=== PATIENT | male | born 1945 | race Caucasian/White ===

== ENCOUNTER 2020-02-01 14:37 | Emergency (ER) | payer MEDICARE, OTHER ==
[2020-02-01 14:45] VITALS: BP 155/95
--- NOTE | 2020-02-01 15:14 | ED Physician Documentation ---
History of Present Illness - Stated complaint Stated Complaint: LT LEG PX - Chief complaint Chief Complaint: Ext Problem - History obtained from History obtained from: Patient (74-year-old gentleman had remote we think laminectomy about 15 years ago. About 2 months ago he was moving his boat by himself and developed sharp low back pain radiating towards the left hip and into the leg. He denies numbness. No saddle anesthesia or fevers. The pain was controlled with Motrin but he did not want to keep taking it. He has an appointment with a new primary care physician in a couple of weeks but wonders if an MRI needs to be done sooner.) Review of Systems Constitutional: denies: Fever, Chills Nose: denies: Rhinorrhea / runny nose, Congestion Throat: denies: Sore throat Cardiac: denies: Chest pain / pressure, Palpitations Respiratory: denies: Dyspnea, Cough PD PAST MEDICAL HISTORY - Present Medications Home Medications: Ambulatory Orders Medication Instructions Recorded Confirmed predniSONE [Deltasone] 20 mg PO [id number] #21 tab 02/01/20 - Allergies Allergies/Adverse Reactions: Allergies Allergy/AdvReac Type Severity Reaction Status Date / Time codeine Allergy Nausea Verified 02/01/20 14:40 - Social History Does the pt smoke?: No Smoking Status: Never smoker - POLST Patient has POLST: No PD ED PE NORMAL - Vitals Vital signs reviewed: Yes - General General: Alert and oriented X 3, No acute distress - Back Back: No spinal TTP, Other (Diminished reflexes in both patella and both ankles, but intact sensation and strength throughout the lower extremities) - Neuro Neuro: Alert and oriented X 3, Normal speech Results - Vitals Vitals: Vital Signs - 24 hr 02/01/20 14:41 Temperature 36.9 C Heart Rate 87 Respiratory 16 Rate Blood Pressure 155/95 H O2 Saturation 97 Oxygen O2 Source Room air PD MEDICAL DECISION MAKING - ED course ED course: 74-year-old gentleman presents with radicular pain, there are no red flags. I discussed with him that an MRI does not need to be done emergently/today but probably does need to be done in the near future. We discussed options, I offered to write an outpatient order but with the understanding that he may have to be rader pay if it is prior to preauthorization Being done, we settled on I would email his new physician with whom he will be seeing for the first time in a couple of weeks to discuss the situation and see if the preauthorization process can be started before the patient is seen. Departure - Departure Disposition: 01 Home, Self Care Clinical Impression: Lumbar radiculopathy Condition: Good Record reviewed to determine appropriate education?: Yes Instructions: ED Sciatica Prescriptions: predniSONE [Deltasone] 20 mg PO [id number] #21 tab Comments: As discussed, you have signs and symptoms of a lumbar radiculopathy. You will eventually need an MRI, and I wrote the following email to Dr. Barba who we will be seeing soon. Return anytime if worse. Dear Dr. Barba, I am seeing a patient who will soon be yours as well by the name of René Alegre, date of 1945. He has a history of remote lumbar surgery and 2 months ago was moving his boat and developed low back pain and a left-sided lumbar radiculopathy which has been constant since. You are seeing him in early February. It may help speed things up for this gentleman if the authorization process for MRI is begun before you see him; would need to be L-Spine w/wo contrast. Feel free to email me with any questions. Discharge Date/Time: 02/01/20 15:15
== END 2020-02-01 15:15 | disposition home or self-care (01) ==
LOC: ED 14:37
DX: M54.16 Radiculopathy, lumbar region (principal)
CPT/HCPCS: 99282; 99283

== ENCOUNTER 2020-02-18 15:01 | Outpatient (CLI) | payer MEDICARE, OTHER ==
--- NOTE | 2020-02-18 17:01 | XRAY Report ---
Reason: LUMBAR RADICULOPATHY Procedure Date: 02/18/2020 Accession Number: [id number] / [id number] Procedure: WCP - Lumbar Spine 2 View CPT Code: Final Report FULL RESULT: PROCEDURE: Lumbar Spine 2 View INDICATIONS: LUMBAR RADICULOPATHY TECHNIQUE: 2 views of the lumbar spine were acquired. COMPARISON: CT abdomen/pelvis dated 02/18/2013 FINDINGS: Bones: 5 [id number] vertebrae are present. There is normal AP bony alignment with mild dextrocurvature of the mid lumbar spine. No acute vertebral body compression fractures. Moderate multilevel lumbar spondylitic changes are again noted which appear to have progressed since 2013 study. Findings are most severe at L5-S1 and L2-3. No suspicious bony lesions. Soft tissues: Overlying bowel gas pattern is normal. No suspicious soft tissue calcifications. Vascular calcifications are present. IMPRESSION: 1. Lumbar spine without acute fracture or dislocation. 2. Interval progression of moderate multilevel lumbar spondylosis most severe at L5-S1 and L2-L3. Reviewed by: Reinaldo Murray MD on 02/18/2020 5:00 PM PDT Approved by: Reinaldo Murray MD on 02/18/2020 5:00 PM PDT Station ID: [id number]
== END 2020-02-18 23:59 | disposition home or self-care (01) ==
LOC: DI.WCP 15:01
PROVIDERS: ATTEND Family Medicine
DX: M47.816 Spondylosis without myelopathy or radiculopathy, lumbar region (principal); M47.817 Spondylosis without myelopathy or radiculopathy, lumbosacral region
CPT/HCPCS: 72100

== ENCOUNTER 2021-01-09 08:00 | Outpatient (CLI) | payer MEDICARE, OTHER | END 2021-01-09 23:59 | disposition home or self-care (01) | LOC: LAB.WCP 08:00 | PROVIDERS: ATTEND Family Medicine | DX: R68.82 Decreased libido (principal); L65.9 Nonscarring hair loss, unspecified; R53.83 Other fatigue | CPT/HCPCS: 36415; 84403 ==